=== PATIENT | male | born 1960 | race Hispanic/Latino ===

== ENCOUNTER 2017-02-21 07:29 | Day surgery (SDC) | payer OTHER ==
--- NOTE | 2017-02-21 07:24 | CP.SDSHP ---
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 Evaluated Today:Candidate for Anesthesia & Procedure: Yes - Date & Time Date: 02/21/17 Time: 07:24 Short Stay Discharge - Short Stay Discharge Admitting Diagnosis/Reason for Visit: CHANGE IN BOWEL HABITS/ANAL SPASM/H/O COLON POLYPS Disposition: HOME/ ROUTINE
[2017-02-21 08:08] VITALS: BMI 33.9
[2017-02-21] MEDS ORDERED: Lidocaine Hydrochloride 5 ML INJ ONE (08:11)
[2017-02-21] MEDS ORDERED: Propofol 10 mg/ml Inj (20 ML) ONE (08:11)
[2017-02-21 08:36] VITALS: TEMP 97.8
[2017-02-21] MEDS ORDERED: Lactated Ringer's 500 ML IV SCH (09:00)
[2017-02-21 10:22] VITALS: RESP 20; O2SAT 98
[2017-02-21 10:25] VITALS: BP 116/70; PULSE 58
== END 2017-02-21 10:20 | disposition home or self-care (01) ==
LOC: C.ENDO 07:29
PROVIDERS: ATTEND Internal Medicine Gastroenterology
DX: D12.2 Benign neoplasm of ascending colon (principal); K59.4 Anal spasm; K57.30 Diverticulosis of large intestine without perforation or abscess without bleeding; K64.8 Other hemorrhoids
CPT/HCPCS: 45388; 88305; J2704; J7120